=== PATIENT | female | born 1990 | race Caucasian/White ===

== ENCOUNTER → 2016-10-16 | Outpatient (CLI) | payer OTHER | LOC: FIMAGING 15:05 | PROVIDERS: ATTEND Obstetrics & Gynecology | DX: O36.5930 Maternal care for other known or suspected poor fetal growth, third trimester, not applicable or unspecified (principal); O41.03X0 Oligohydramnios, third trimester, not applicable or unspecified; Z3A.34 34 weeks gestation of pregnancy ==

== ENCOUNTER 2016-11-23 02:20 | Inpatient (IN) | payer OTHER ==
[2016-11-23] MEDS ORDERED: PROMETHAZINE HCL 25 MG TAB PO ONE (05:00)
[2016-11-23] MEDS ORDERED: TERBUTALINE SULFATE 1 MG/ML VIAL IV PRN (06:32)
[2016-11-23] MEDS ORDERED: EPSOM SALT 454 GM TP PRN (06:32)
[2016-11-23] MEDS ORDERED: LR 1,000 ML IV PRN (06:32)
[2016-11-23] MEDS ORDERED: OLIVE OIL 118 ML BTL MISC PRN (06:32)
[2016-11-23] MEDS ORDERED: IBUPROFEN 600 MG TAB PO PRN (06:32)
[2016-11-23] MEDS ORDERED: OXYTOCIN/RINGERS LACTATE 1,000 ML IV PRN (06:32)
[2016-11-23] MEDS ORDERED: AMPICILLIN SODIUM 2 GM in NS 100 ML IV ONE (06:32)
[2016-11-23] MEDS ORDERED: AMPICILLIN SODIUM 2 GM/10 ML VIAL ONE (06:43)
[2016-11-23 06:45] LABS: % IMMATURE GRANULYOCYTES 0.5 % (0.0-1.1); ABSOLUTE IMMATURE GRANULOCYTES 0.07 10^3/uL (0.00-0.10); ADD DIFF? NO; ADD MORPH? NO; ADD SCAN? NO; ATYPICAL LYMPHOCYTE FLAG 0 (0-99); FRAGMENT RBC FLAG 0 (0-99); HEMATOCRIT 39.9 % (38.0-47.0); HEMOGLOBIN 13.2 g/dL (12.6-16.3); LEFT SHIFT FLG 0 (0-99); LIPEMIA HEMOLYSIS FLAG 80 (0-99); MEAN CELL HEMOGLOBIN 28.6 pg (27.9-34.1); MEAN CELL HEMOGLOBIN CONCENTR. 33.1 g/dL (32.4-36.7); MEAN CELL VOLUME 86.4 fL (81.5-99.8); MEAN PLATELET VOLUME 10.7 fL (8.7-11.7); PLATELET CLUMPS FLAG 40 (0-99); PLATELET COUNT 275 10^3/uL (150-400); RED BLOOD CELL COUNT 4.62 10^6/uL (4.18-5.33); RED CELL DISTRIBUTION WIDTH 13.8 % (11.5-15.2)
[2016-11-23] MEDS ORDERED: fentaNYL 100 MCG/2 ML INJ ONE (07:03)
[2016-11-23] MEDS ORDERED: fentaNYL 100 MCG/2 ML INJ IVP ONE (07:15)
[2016-11-23] MEDS ORDERED: PHENYLEPHRINE HCL 100 MCG/ML SYR ONE ×2 (07:25→07:28)
[2016-11-23] MEDS ORDERED: BUPIVACAINE 0.25% 30 ML SDV ONE (07:25)
[2016-11-23] MEDS ORDERED: fentaNYL 2MCG/ML/BUP 0.1% RTU 100 ML BAG EP ONE (07:25)
[2016-11-23] MEDS ORDERED: LIDOCAINE 1% 300 MG/30 ML SDV ONE (07:38)
[2016-11-23] MEDS ORDERED: MISOPROSTOL 200 MCG TAB ONE (07:38)
[2016-11-23] MEDS ORDERED: TERBUTALINE SULFATE 1 MG/ML VIAL ONE (07:38)
[2016-11-23] MEDS ORDERED: OLIVE OIL 118 ML BTL ONE (07:38)
[2016-11-23] MEDS ORDERED: OXYTOCIN 10 UNIT/ML VIAL ONE (07:38)
[2016-11-23] MEDS ORDERED: AMMONIA AROMATIC 1 EACH AMP IH ONE (07:38)
[2016-11-23] MEDS ORDERED: NALOXONE HCL 0.4 MG/ML INJ IVP PRN (08:05)
[2016-11-23] MEDS ORDERED: ONDANSETRON 4 MG/2 ML VIAL IVP PRN (08:05)
[2016-11-23] MEDS ORDERED: PHENYLEPHRINE HCL 100 MCG/ML SYR IVP PRN (08:05)
[2016-11-23] MEDS ORDERED: fentaNYL 2MCG/ML/BUP 0.1% RTU 100 ML EP SCH (08:30)
[2016-11-23] MEDS ORDERED: LR 500 ML IV SCH (08:30)
--- NOTE | 2016-11-23 10:26 | GHP ---
[f rep st] PREOP HISTORY AND PHYSICAL DATE OF ADMISSION: 11/23/2016 ADMISSION SUMMARY: The patient is a 26-year-old, G1, P0, at 39+ weeks gestation , with an estimated due date of 11/27/2016 that was established by an ultrasound done at 27 weeks' gestation. The patient had late care and had a minimal ultrasound at that time, and then actually did not establish care until 33 weeks. The patient was found to have a 2-vessel cord and has been having regular NSTs for surveillance and these have been reassuring. With the initial dating ultrasound as a comparison, the followup ultrasounds have shown small growth. An ultrasound at 34 weeks revealed an estimated weight of 6th percentile with borderline low fluid at 6 cm. The patient has also been getting weekly AFIs since that point. The patient had a followup with a specialist and was the 12th percentile at that point. Fluid level again was borderline. The last ultrasound done for size again showed the baby was greater than the 10th percentile and the fluid level has consistently remained above 5. DEVON most recently was 14. With the other reassuring monitoring, the decision was not to induce for IUGR until 40 weeks and the patient started spontaneous labor today. The patient had spontaneous onset of contractions approximately at midnight, however, a regular pattern after 1:30 a.m. When patient presented to the hospital she was 1 cm dilated, with slow waste/materials exchange specialist a couple hours with increasing contractions. The patient received morphine sleep and also had changed during that time to 3-4 cm. Then patient was significantly uncomfortable and requested an epidural. This has been placed, and the patient is comfortable now. The patient received her first dose of antibiotics for a positive GBS at 6:45. PAST HISTORY: The patient reports being on the control pills until the end of February and was continuing to have monthly bleeds until June. As the patient was not thinking she was with a negative urine in April, the patient was continuing to have daily nicotine and daily marijuana. The patient reported doing alcohol, averaging 1-2 drinks a day on the weekends up to the time she was diagnosed at the 27-week ultrasound. The patient has decided to relinquish the baby for adoption and has set up this through the [facility]. The patient reports discontinuing alcohol, smoking and marijuana since diagnosis of . PAST MEDICAL HISTORY - heartburn . PAST OBSTETRIC LABS: The patient was found to be borderline anemic in September with a hematocrit of 36%. Blood type is O positive, with negative antibody screen. RPR nonreactive. Hepatitis B surface antigen negative. HIV negative. The patient is nonimmune to rubella. Parvo virus shows immune. Urinalysis showed positive leukocytes and yeast. Pap smear was negative. Gonorrhea and chlamydia were negative. No early genetic testing was performed due to the late care. 1-hour Glucola was elevated and a followup 3-hour GTT was normal. GBS culture was positive. PAST SURGICAL HISTORY: Negative. PAST OBSTETRIC HISTORY: Negative. ALLERGIES: No known drug allergies. CURRENT MEDICATIONS: Only Tylenol and vitamins. SOCIAL HISTORY: The patient has a steady partner who she refers to as her fiance. The patient has a history of cigarette smoking since the age of 16, 1 to 2 cigarettes a day as well as marijuana use daily. The patient reported alcohol, 1-2 glasses a day on the weekends until July. The patient denies other drug use. PHYSICAL EXAMINATION: GENERAL: Upon admission, the patient is a well-developed , well-nourished, white female, in no distress now with the epidural. Upon admission, the patient was very uncomfortable even with palpably mild contractions. They have increased while she has been here at the hospital and was extremely uncomfortable prior to the epidural. ADMISSION VITAL SIGNS: All within normal limits. After the epidural, the patient has become at times a little more tachycardic, up to the 100s heart rate but has decreased with her resting now after the epidural. heart tones are in the 120s with reactive pattern with accelerations and moderate variability. Category 1 tracing. PELVIC: Exam after the epidural revealed 7 cm dilated, 100% effaced with 0 station. Bulging bag of water that was ruptured on exam and a moderate meconium was noted. EXTREMITIES: Nontender, no edema. ASSESSMENT: Intrauterine at 39+ weeks' gestation by late ultrasound. Positive GBS with ampicillin given x1 at 0645. Moderate meconium noted on rupture of membranes. Late care with history of smoking, marijuana, social alcohol up to 3rd trimester. Baby being relinquished and process is set up with an adoption agency. Borderline IUGR and borderline fluid has been noted but most recently was reassuring. surveillance in the has been normal and reassuring. PLAN: Expect vaginal delivery soon. Adoptive agency has been contacted to have the adoptive family here at the hospital who will receive the baby in a different room. The baby will be assessed for the meconium and managed as needed. The patient will receive MMR prior to discharge. We will administer another dose of antibiotics if the patient has not delivered by 4 hours. /[id number]/MODL MTDD
[2016-11-23] MEDS ORDERED: AMPICILLIN SODIUM 1 GM in NS 100 ML IV SCH (10:33)
[2016-11-23 12:14] LABS: PH ARTERIAL CORD BLOOD 7.18 (7.10-7.37); PH VENOUS CORD BLOOD 7.27 (7.20-7.42)
[2016-11-23 12:16] LABS: BASE EXCESS CORD -6.9 mEq/L (-13.6--3.2)
[2016-11-23] MEDS ORDERED: ACETAMINOPHEN 325 MG TAB PO PRN (13:39)
--- NOTE | 2016-11-23 13:44 | OBPROC ---
- Labor and Delivery Onset of Contractions Date: 11/23/16 Onset of Contractions Time: 01:30 Onset of Contractions Type: Spontaneous Rupture of Membranes Date: 11/23/16 Rupture of Membranes Time: 08:11 Rupture of Membranes Type: Artificial Amniotic Fluid Color: Meconium Stained-Moderate Dilation Complete Time: 09:45 Delivery Type: Spontaneous Placenta Delivery Date: 11/23/16 Placenta Delivery Time: 12:00 Episiotomy/Laceration: 1st Degree, Periurethral (bilateral) Repair: Other (Specify) (none needed) EBL: 350 Complications: None Cord Gases: Cord Gases Cord Blood PCO2 63.0 mmHg (37-60) H 11/23/16 11:56 Cord Base Excess -6.9 mEq/L (-13.6--3.2) 11/23/16 11:56 Cord ABG pH 7.18 (7.10-7.37) 11/23/16 11:56 Cord VBG pH 7.27 (7.20-7.42) 11/23/16 11:56 - Medications Labor Augmentation/Induction Meds Used: None Anesthesia: Epidural - [place] Info A Delivery Date: 11/23/16 Delivery Time: 11:53 Sex of : Female Score (1 Min): 2 Score (5 Min): 8
[2016-11-23] MEDS ORDERED: MEASLES,MUMPS&RUBELLA VACC/PF 0.5 ML VIAL SC ONE (14:13)
[2016-11-23 15:53] VITALS: BP 125/69; PULSE 80; RESP 16; TEMP 99
== END 2016-11-23 16:56 | disposition home or self-care (01) | DRG 775 ==
LOC: FLD 02:20 → OBSVTOIN 15:30
PROVIDERS: ADMIT Obstetrics & Gynecology; ATTEND Obstetrics & Gynecology
PROC: 10E0XZZ Delivery of Products of Conception, External Approach (ICD-10-PCS; principal; 2016-11-23)
PROC: 10907ZC Drainage of Amniotic Fluid, Therapeutic from Products of Conception, Via Natural or Artificial Opening (ICD-10-PCS; 2016-11-23)
DX: O71.82 Other specified trauma to perineum and vulva (principal); O77.0 Labor and delivery complicated by meconium in amniotic fluid; O99.824 Streptococcus B carrier state complicating childbirth; O99.332 Smoking (tobacco) complicating pregnancy, second trimester; Z3A.39 39 weeks gestation of pregnancy; Z37.0 Single live birth
CPT/HCPCS: J0290; J2370; J2590; J3010; J3105

== ENCOUNTER 2017-12-28 14:37 | Emergency (ER) | payer OTHER ==
[2017-12-28 14:44] VITALS: BP 130/92
[2017-12-28] MEDS ORDERED: CEPHALEXIN 500 MG CAP PO ONE (15:13)
[2017-12-28] MEDS ORDERED: TDAP ADULT 0.5 ML INJ (BOOSTRIX) IM ONE (15:13)
[2017-12-28] MEDS ORDERED: SULFAMETHOX/TMP 800/160 MG 1 TAB PO ONE (15:13)
--- NOTE | 2017-12-28 15:13 | EDPHY ---
H & P Stated Complaint: cellulitis r cunningham/scraped 3 days ago when fell into heating duct Source: Patient Exam Limitations: No limitations - Personal History LMP (Females 10-55): IUD In Place Current Tetanus Diphtheria and Acellular Pertussis (TDAP): No - Medical/Surgical History Hx Asthma: No Hx Chronic Respiratory Disease: No Hx Diabetes: No Hx Cardiac Disease: No Hx Renal Disease: No Hx Cirrhosis: No Hx Alcoholism: No Hx HIV/AIDS: No Hx Splenectomy or Spleen Trauma: No Other PMH: late PNC, smoker - Social History Smoking Status: Current every day smoker Time Seen by Provider: 12/28/17 14:57 HPI/ROS: HPI: This is a 27-year-old female who presents with Chief Complaint: cellulitis r cunningham/scraped 3 days ago when fell into heating duct Location:right cunningham Quality: Redness Duration: 3 days Signs and Symptoms: No bleeding, no radiation, no numbness, no weakness, no tingling, no incontinence, no decreased range of motion, + swelling, no pain, no fever Timing: Acute, worsened Severity: [id number] Context: Patient reports that she accidentally fell through her air vent in her house scraping the right anterior cunningham. She reports over the last 3 days it has progressively become more red and swollen. Tetanus status not up-to- date. Denies radiation, weakness, ambulatory deficit. Modifying Factors: None Comment: ROS: see HPI Constitutional: No fever, no chills, no weight loss Eyes: No blurred vision Respiratory: No shortness of breath, no cough Cardiovascular: No chest pain Gastrointestinal: No nausea, no vomiting no diarrhea Genitourinary: No dysuria Extremities: No myalgias Neurologic: No weakness, no numbness Skin: No rashes Hematologic: No bruising, no bleeding MEDICAL/SURGICAL/SOCIAL HISTORY: Medical history: late PNC, IUD in place Surgical history: Denies Social history: Smoker. CONSTITUTIONAL: Nontoxic appearing adult white female, awake and alert, no obvious distress HEENT: Atraumatic and normocephalic. EXTREMITIES: 2/2 pulses, strength 5/5, right anterior cunningham shows 4 in annular erythematous area; no fluctuance; the scabbed superficial laceration 1 in in size noted. DIP/PIP/MCP flexion/extension intact with good light touch sensation. no deformities, no clubbing, no cyanosis or edema. NEUROLOGICAL: no focal neuro deficits. GCS 15. Light touch sensation intact. SKIN: Warm and dry, no erythema. no rash. Good capillary refill. (Jasmin Foy) Constitutional: Initial Vital Signs Temperature (C) 36.7 C 12/28/17 14:42 Heart Rate 102 H 12/28/17 14:42 Respiratory Rate 17 12/28/17 14:42 Blood Pressure 130/92 H 12/28/17 14:42 O2 Sat (%) 94 12/28/17 14:42 O2 Delivery Mode Room Air Allergies/Adverse Reactions: No Known Allergies Allergy (Verified 12/28/17 14:41) Home Medications: Medication Instructions Recorded Cephalexin [Keflex (*)] 500 mg PO TID #21 cap 12/28/17 Sulfamethox/Tmp 800/160 mg 1 tab PO BID #14 tab 12/28/17 [Bactrim Ds] Medical Decision Making ED Course/Re-evaluation: Tetanus booster given Healed laceration that does not require repair. Take Keflex and Bactrim given. Surgical marker used to outline. Verbal and written wound care instructions provided. All questions answered. No signs of neurovascular compromise/tenting of skin/compartment syndrome/ extremities and joints examined above and below area of concern and are neurovascularly intact/septic arthritis. This patient was seen under the supervision of my secondary supervising physician. I evaluated care for this patient independently. Discussed this patient with Dr. Schmidt who did not see the patient. (Jasmin Foy) Differential Diagnosis: Differential diagnosis includes but is not limited to cellulitis, abscess, MRSA infection, vasculitis. (Jasmin Foy) - Data Points Medications Given: Discontinued Medications Cephalexin HCl (Keflex) 500 mg PO EDNOW ONE PRN Reason: Protocol Stop: 12/28/17 15:14 Last Admin: 12/28/17 15:24 Dose: 500 mg Diphtheria/Tetanus/Acell Pertussis (Boostrix) 0.5 ml IM .ONCE ONE Stop: 12/28/17 15:14 Last Admin: 12/28/17 15:24 Dose: 0.5 ml Trimethoprim/Sulfamethoxazole (Bactrim Ds) 1 ea PO EDNOW ONE PRN Reason: Protocol Stop: 12/28/17 15:14 Last Admin: 12/28/17 15:24 Dose: 1 ea Departure - Departure Disposition: Home, Routine, Self-Care Clinical Impression: Cellulitis of right anterior lower leg Condition: Good Instructions: Cellulitis (ED) Additional Instructions: Wash the site daily with mild soap and water; then pat dry. Take Tylenol 650 mg every 4 hours and/or Ibuprofen 600 mg every 8 hours with food as needed for pain. Elevate as much as possible over the next 48 hr. Apply ice for 30 minutes at a time; 2-3 times per day for the next 1-2 days. Take Keflex and Bactrim as directed x7 days. Return to the ER immediately if you experience redness, red streaks, have fevers /chills, flu like symptoms, limited range of motion, or any other symptoms that concern you. Referrals: [facility],. [Clinic] - 5-7 days, if not improved Prescriptions: Cephalexin [Keflex (*)] 500 mg PO TID #21 cap Sulfamethox/Tmp 800/160 mg [Bactrim Ds] 1 tab PO BID #14 tab
== END 2017-12-28 15:30 | disposition home or self-care (01) ==
DX: L03.115 Cellulitis of right lower limb (principal); F17.200 Nicotine dependence, unspecified, uncomplicated; Z23 Encounter for immunization